=== PATIENT | male | born 1955 | race American Indian/Alaskan Native ===

== ENCOUNTER 2021-01-09 16:17 | Inpatient (IN) | payer MEDICARE, OTHER ==
[~2021-01-09] VITALS: Ht 167.6 cm; Wt 70.5 kg
[~2021-01-09 16:17] MED LIST: ASPIRIN EC81 MG PO; CYCLOBENZAPRINE5 MG PO; HYDROCODON-ACE1 EA11 PO; JANUMET 50-1,01 EACH PO; SIMVASTATIN10 MG PO
[2021-01-09] MEDS ORDERED: METHADONE HCL10 MG PO (16:29)
--- NOTE | 2021-01-09 19:42 | EKG ---
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
--- NOTE | 2021-01-09 21:30 | NUR ---
THIS RN TO ED, BEDSIDE REPORT FROM MATT WILLIS. MOVED FROM ED TO CCU. pt ROLLED FROM STRETCHER TO BED WITHOUT ASSISTANCE. THIS RN AT BEDSIDE TO DO ADMISSION.
--- NOTE | 2021-01-09 22:10 | NUR ---
pt IS ORIENTED TO SELF AND CITY. RESPIRATIONS TACHY, HIGH 20'S - MID 30'S. pt DENIES SOB AND PAIN. pt SOUNDS VERY COARSE IN THE UPPER AIRWAY/THROAT, CLEAR AND DIM IN THE LOWERS. UNABLE TO PROVIDE MUCH HISTORY. DENIED RECREATIONAL DRUGS "RECENTLY, BUT MY ROOMMATE DOES STUFF" pt REPORTED TAKING "INSULIN YEARS AGO" UNABLE TO LIST MEDICAIONS TAKEN EXCEPT METHADONE.
--- NOTE | 2021-01-09 22:42 | NUR ---
pt MOVING AROUND IN BED. REQUESTED TV BE TURNED OFF, DONE. NO FURTHER REQUESTS AT THIS TIME. BED ALARM ON.
--- NOTE | 2021-01-09 23:18 | NUR ---
pt CALLED OUT FOR NURSE. REQUESTED THAT BLOOD PRESSURE CUFF BE TAKEN OFF. REPORTED HE COULD NOT SLEEP. NO FURTHER REQUESTS CALL LIGHT WITHIN REACH.
--- NOTE | 2021-01-09 23:44 | NUR ---
pt UP TO VOID AND BACK TO BED 1PA. URINE SAMPLE SENT TO LAB. BED ALARM ON. CURTAIN OPEN TO NURSES STATION.
--- NOTE | 2021-01-10 01:25 | NUR ---
IV PUMP ALARMING. LEFT AC IV OCCLUDING WITH pt MOVEMENT. NEW IV STARTED. pt TOLERATED WELL. ASSESSMENT DONE. pt HAS A PRODUCTIVE COUGH. CALL LIGHT WITHIN REACH. BED ALARM ON. CURTAIN OPEN TO NURSES STATION.
--- NOTE | 2021-01-10 02:03 | NUR ---
pt MOVING IN BED. PROVIDED SODA PER REQUEST. pt ABLE TO COUGH A LITTLE MORE UP. BED ALARM ON. CURTAIN OPEN TO THE NURSES STATION.
--- NOTE | 2021-01-10 02:52 | NUR ---
PT SITTING UP ON THE SIDE OF HIS BED, ALARM SOUNDING. PT STATES HE NEEDS TO GO TO THE BR. PT SEEMS CONFUSED, PLAYING WITH THE RAIL. SBA TO BR AND BACK TO BED. NO OTHER NEEDS AT THIS TIME. RAILS UP, BED ALARM ON, CALL LIGHT IN REACH.
--- NOTE | 2021-01-10 04:21 | NUR ---
pt MOVING AROUND IN BED. UP TO VOID 1PA. BACK TO BED. ORIENTED TO LOCATION AND SELF. HAD TROUBLE WITH EQUIPMENT. PROVIDED FOOD AND WATER. NO FURTHER REQUESTS AT THIS TIME. CALL JUAN GARCIA.
--- NOTE | 2021-01-10 08:30 | NUR ---
PT IS AWAKE AND ALERT TO SELF AND SURROUNDINGS. PT HAS SOME DIFFICULTY FOLLOWING DIRECTIONS. PT DENIES PAIN. PT IV SITES ARE INTACT, NO REDNESS OR SWELLING NOTED, FLUIDS AND FLUSHES INFUSE EASILY. PT HAS BREAKFAST, HOWEVER STATES "I'M GOING TO TAKE A NAP FIRST, THEN EAT." PT REPOSITIONS SELF EASILY IN BED.
--- NOTE | 2021-01-10 09:01 | NUR ---
LE 0830: PATIENT IS LAYING DOWN. BREAKFAST PLACED AT BEDSIDE BUT NO DESIRE TO EAT AT THIS TIME. DIFFICULT TO UNDERSTAND SOME COMMANDS WHEN PEFORMING HEAD TO TOE ASSESSMENT. WOULD RANDOMLY MENTION HIS HORSES AND CATS BACK HOME. HAS TROUBLE KEEPING TELE LEADS IN PLACE WHEN HE TURNS. IVS ARE INTACT. CALL LIGHT WITHIN REACH. NO ADDITIONAL NEEDS AT THIS TIME.
--- NOTE | 2021-01-10 09:37 | NUR ---
PT STATES "I HAVE TO GO, I HAVE THINGS I HAVE TO DO". EDUCATED PT TO MEDICAL OPINION FROM THAT PT STILL REQUIRES CCU LEVEL CARE. PT STATES "YES, BUT THAT IS MY CHOICE". ENCOURAGED PT TO CONSIDER STAYING UNTIL HIS COURSE OF TREATMENT IS COMPLETED. PT STATES "LET ME CALL SOME PEOPLE AND SEE WHAT IS GOING ON". PT GIVEN HIS CELL PHONE FROM THE CLOSET.
--- NOTE | 2021-01-10 11:52 | NUR ---
pt up and ambulating in the robert with Grant from Physical Therapy. pt appears to ady activity well.
--- NOTE | 2021-01-10 12:11 | NUR ---
PATIENT RETURNED BACK TO BED FROM HIS PT SESSION. PATIENT STATED HE WAS TIRED FROM HIS WALK BUT FELT BETTER. COLD WATER WAS PLACED BY HIS BEDSIDE TABLE AND WAS ABLE TO TOLERATE SWALLOWING AND DRINKING WITH ASSISTANCE OF CAREGIVER. CAREGIVER IN THE ROOM. HAVE TO CONTINUE TO SPEAK OUTLOUD FOR HIM TO RESPOND TO QUESTIONS. CALL LIGHT WITHIN REACH. LUNCH ORDERED BY DONATION SPECIALIST.
--- NOTE | 2021-01-10 13:26 | NUR ---
PT UP TO BATHROOM TO VOID. PT IS STEADY ON FEET, ALTHOUGH CONFUSED. PT HAS A DIFFICULT TIME FOLLOWING SIMPLE DIRECTIONS.
--- NOTE | 2021-01-10 14:44 | NUR ---
MED REC COMPLETE
--- NOTE | 2021-01-10 15:52 | NUR ---
PT IS CONTRADICTORY AND CONTINUES TO TALK ABOUT LEAVING THE HOSPITAL. PT STATES "YOU CAN'T KEEP ME HERE, IT'S MY CHOICE."
--- NOTE | 2021-01-10 16:34 | NUR ---
PATIENT WAS ABLE TO TRANSFER TO RESTROOM TO VOID WITH STAND BY ASSIST OF FOOD CASHIER. PATIENT KEEPS ASKING IF HE COULD SMOKE A CIGARETTE. WAS TOLD NO AND OFFERED A NICOTINE PATCH INSTEAD BUT PATIENT DENIED IT. PATIENT IS NOW SITTING ON THE COUCH ON HIS PHONE. CALL LIGHT WITHIN REACH. NO ADDITIONAL NEEDS AT THIS TIME.
--- NOTE | 2021-01-10 18:14 | NUR ---
[facility]. HE HAS BEEN VERY AGGITATED AND NO LONGER WANTED TO BE ATTACHED TO THE LEADS, SO TELE LEADS HAVE BEEN REMOVED. HE HAS A TENDENCY TO WANT TO TAKE OUT HIS IV, BUT WAS VERBALLY ENCOURAGED TO ALLOW FOR THEM TO STAY INTACT TO PROVIDE MEDICATIONS. CAREGIVER IS SITTING ON THE COUCH NEXT TO HIM. HAS ORDERED FOOD FOR DINNER BUT HAS LITTLE TO NO APPETITE AT THIS TIME. CALL LIGHT WITHIN REACH. NO ADDITIONAL NEEDS AT THIS TIME.
--- NOTE | 2021-01-10 18:35 | NUR ---
Update from RN. Pt will remain in ccu as HC. Pt now has + blood cultures.
--- NOTE | 2021-01-10 18:45 | NUR ---
PATIENT WAS ABLE TO TRANSFER TO RESTROOM WITH NO ASSITANCE. WAS VERY EAGER TO GO, AND WANTED TO PULL ALL CABLES WITH HIM FROM THE WALL. CAREGIVER MENTIONED IT TO US AND WE WERE ABLE TO GRAB A BATTERY PACK. PATIENT FELL WHILE IN THE RESTROOM. HE WAS ABLE TO PULL THE EMERGENCY CALL LIGHT LOCATED ON THE WALL. NURSES ASSISTED WITH HELPING HIM UP. SLIGHT BRUISING ON UPPER LEFT SHOULDER. SMALL ABRASION ON TOP LEFT FOREHEAD. CT SCAN PERFROMED, WAITING FOR RESULTS. PATIENT IS LAYING IN BED. CAREGIVER IN THE ROOM. CALL LIGHT WITHIN REACH.
--- NOTE | 2021-01-10 18:47 | NUR ---
while assisting in ccu, Pt was up in bathroom. Pt had a fall, this RN called Dr Maldonado to notify of fall. Pt denies LOC, remembers event, denies pain other than head. Head CT ordered by Dr. Maldonado. Pts primary nurse in room.
--- NOTE | 2021-01-10 19:36 | NUR ---
FULL IRIS FILL OUT ON PT FALL.
--- NOTE | 2021-01-10 20:00 | NUR ---
PATIENT RESTING IN BED. REPORTS BEING UNCOMFORTABLE. ASSISTED THE PATIENT TO STAND AT THE BEDSIDE. BEDDING SMOOTHED. PATIENT RETURNED TO BED. WARM BLANKET PROVIDED. VS STABLE. IV SITE WNL X2. VANCO STARTED. INSTRUCTED PATIENT TO CALL IF IRRITATION OCCURS. CAREGIVER AT BEDSIDE. PATIENT MUMBLES AND DOESN'T ANSWER ORIENTATION QUESTIONS. APPEARS SLIGHTLY CONFUSED OR FORGETFUL. NOT AT BASELINE ACCORDING TO CAREGIVER, WHO STATES HE IS ORIENTED UP UNTIL THE LAST WEEK. PATIENT TOLERATING ROOM AIR, LUNG SOUNDS ARE DIMINISHED.
--- NOTE | 2021-01-10 21:36 | NUR ---
PATIENT INCREASINGLY AGGITATED AND TRYING TO PULL IV SITE OUT. CAREGIVER NOT BEING EFFECTIVE IN CALMING HIM. STAFF IN ROOM FREQUENTLY TO ASSIST. PATIENT UP TO THE BATHROOM. UNSTEADY ON HIS FEET, STAFF INSIST HE SIT TO PEE WHICH WAS FRUSTERATING TO PATIENT. PATIENT DOES REMEMBER FALLING. DISCUSSED WITH MD. WILL PUT IN ORDERS.
--- NOTE | 2021-01-10 21:53 | NUR ---
PATIENT'S "CAREGIVER" AT BEDSIDE, SHE REPORTS BEING PATIENT'S SIGNIFICANT OTHER FOR 10 YEARS UP UNTIL THE LAST 6 MONTHS. PATIENT AND THIS PERSON ARE ARGUING AND SHE STATES HE MIGHT BE MORE CALM WITHOUT HER THERE. PRN ATIVAN PROVIDED TO PATIENT. ASSISTED HIM BACK INTO BED. PATIENT CALMS QUICKLY. BED ALARM ACTIVE AND MONITOR IN PLACE.
--- NOTE | 2021-01-10 22:43 | NUR ---
DAYSHIFT CAREGIVER BACK IN ROOM. QUIETLY MAKING BED ON COUCH TO STAY THE NIGHT. PATIENT IS SLEEPING SOUNDLY. VS STABLE.
--- NOTE | 2021-01-11 00:30 | NUR ---
PATIENT'S EVENING ACCU CHECK DONE LATE SO HS CHECK AND SSI DONE AT THIS TIME. PATIENT IS SLEEPING SOUNDLY. HAS ATE AND DRANK VERY LITTLE. PATIENT'S CAREGIVER DID BRING HIM PIE BUT STAFF DISCUSSED HIS DIET RESTRICTIONS AND PATIENT CLAIMED NOT TO EAT ANY OF THIS. BLOOD GLUCOSE GREATER THAN 300, SSI GIVEN PER ORDER. PATIENT WAKES BREIFLY BUT QUICKLY SETTLES DOWN AGAIN. IV SITE WNL, FLUIDS PER ORDER. BED ALARM ACTIVE.
--- NOTE | 2021-01-11 03:31 | NUR ---
PATIENT PICKING AT CARDIAC LEADS AND GOWN. QUESTIONED PATIENT IF HE NEEDED TO VOID. PATIENT IS DROWSY BUT AGREES HE NEEDS TO VOID. ASSISTED PATIENT TO THE BSC. PATIENT NOT FOLLOWING INSTRUCTIONS WELL. 2PA. PATIENT VOIDED ON THE FLOOR AND IN HIS UNDERWEAR. PATIENT THEN SAT ON BSC AND VOIDED AGAIN. ATTENDS PLACED ON PATIENT. PATIENT ASSISTED BACK TO BED WITH 2PA. VS STABLE. IV FLUIDS PER ORDER, SITE WNL. PATIENT ENCOURAGED TO REST. CALL LIGHT IN REACH. BED ALARM ON.
--- NOTE | 2021-01-11 06:01 | NUR ---
PATIENT SLEEPING SOUNDLY. IV VANCO FINISHED, SITE WNL. IV FLUIDS CONTINUED. BED ALARM ACTIVE. CALL LIGHT IN REACH.
--- NOTE | 2021-01-11 06:53 | NUR ---
DISCUSSED PATIENT'S LAB FINDINGS WITH . TELEPHONE ORDERS RECEIVED FOR POTASSIUM AND MAG REPLACEMENT. BRIEF UPDATE PROVIDED.
--- NOTE | 2021-01-11 08:45 | NUR ---
20 G IV STARTED IN PT RT HAND, PT LUIS WELL, FLUSHES EASILY.
--- NOTE | 2021-01-11 09:10 | NUR ---
Attempted to see pt, he with RN and yelling out. Will return later.
--- NOTE | 2021-01-11 09:17 | NUR ---
LE 0830 FIRST ATTEMPT WAS UNSUCCESSFUL BY STUDENT NURSE. SECOND ATTEMPT PERFORMED BY NURSE CUBA AND WAS SUCCESSFUL.
--- NOTE | 2021-01-11 09:32 | NUR ---
PATIENT HAS BEEN SLEEPING AND IS HAVING DIFFICULTY STAYING AWAKE WHEN ASKED QUESTIONS. DOES BECOME ALERT WHEN PAIN STIMULUS IS PRESENT. PATIENT IS SLEEPING IN BED. O2 MONITOR PLACED ON LEFT TOE WITH COVERED SOCK. CALL LIGHT WITHIN REACH. O2 STATS ARE WNL FROM 90-99% WHILE ON ROOM AIR.
--- NOTE | 2021-01-11 11:14 | NUR ---
BED BATH GIVEN, ALL SKIN WASHED WITH WARM WASH CLOTHS, FULL JOANNE CARES DONE, GOWN AND ATTENDS CHANGED. PT NOT ABLE TO ASSIST WITH CARES, HOWEVER TOLLERATES THIS PROCESS WELL. PT NOT ABLE/WILLING TO OPEN EYES AND TALK TO CARE TEAM, BUT DOES STATES "CAN I GET SOME COFFEE". PT ASSISTED WITH VOIDING INTO THE URINAL IN BED HE IS NOT STEADY ON HIS FEET TO STAND AT BEDSIDE. PT HAS DIFFICULTY WITH VOIDING WHILE LAYING DOWN, NOT ABLE TO FOLLOW DIRECTIONS WELL. 225 ML CLEAR SHANTEL URINE. PT NOW APPEARS TO BE RESTING WELL, O2 SAT IS 100% ON RA AT THIS TIME.
--- NOTE | 2021-01-11 12:59 | NUR ---
PTS IVS ARE INTACT. UNDISTRESSED AND APPEARS RESTFUL. PT WAS ABLE TO VERBALIZE HIS URGE TO VOID AND WAS ASSISTED WITH THE URINAL AT THE BED BY THE STUDENT NURSE. VITAL SIGNS ARE STABLE. 100% O2 STATUS AT THIS TIME. PT IS SLEEPING, CALL LIGHT WITH IN REACH.
--- NOTE | 2021-01-11 13:12 | NUR ---
Attempted to see pt and he is sleeping.
--- NOTE | 2021-01-11 16:21 | NUR ---
PATIENT IS DROWSY, HAS BEEN TOSSING AND TURNING IN BED. OFFERED A PILLOW FOR SUPPORT BUT DENIED IT. HAS NO DESIRE TO VOID OR DRINK OR EAT AT THIS TIME. CALL LIGHT WITHIN REACH.
--- NOTE | 2021-01-11 18:20 | NUR ---
PATIENT SAT UP IN BED AND STATED HE HAD THE URGE TO URINATE. WITH THE ASSISTANCE OF THE STUDENT NURSE AND NURSE, A URINAL WAS PLACED AND HE WAS ABLE TO VOID WITHOUT ISSUES. REPLACED THE OLD SHEETS AND BLANKETS WITH NEW ONES. FLATUS RELEASED UPON REPOSITIONING TO BED. TOLERATED SOME FLUID INTAKE. PT IS NOW SLEEPING. CALL LIGHT WITHIN REACH.
--- NOTE | 2021-01-11 19:22 | NUR ---
[facility] - ROSA FROM THE LOCAL [facility] CALLED AND REPORTED THAT THE PT'S LAST DOSE OF METHADONE WAS 50 MG ON 01/07/21 IN THE MORNING. SHE ALSO REPORTS THAT THE PT HAS ONLY MISSED "ONE OR TWO DAYS HERE AND THERE" AND THAT HE IS "PRETTY REGULAR". SHE REQUESTS A NOTIFICATION OF PT DISCHARGE TO HOME. PLEASE CALL [phone].
--- NOTE | 2021-01-11 20:34 | NUR ---
PATIENT BECAME MORE RESETLESS BUT WAS FREQUENTLY DROWSY AND DENIED NEEDS. AFTER SEVERAL INTERATIONS PATIENT SET OFF BED ALARM BY TRYING TO CLIMB OFF THE VERY END OF THE BED. ASSISTED PATIENT TO STAND SAFELY AT BEDSIDE. PATIENT REPORTS NEED TO VOID. PATIENT IS UNSTEADY. 1PA TO THE BATHROOM. PATIENT SAT TO VOID [address] NEW ATT[address] IN PL[address]. 2PA BACK TO BED. PATIENT FOLLOWS SOME COMMANDS AND HOLDS SMALL CONVERSATION. VS STABLE. PO MEDS PROVIDED. CHEWED MEDS DESPITE NURSE'S INSTRUCTIONS. PATIENT TOOK SEVERAL SIPS OF WATER AND SAT AT EDGE OF BED. IV VANCO STARTED, IV SITE WNL. PATIENT EVENTUALLY LAID BACK DOWN AND WARM BLANKET WAS PROVIDED. CALL LIGHT IN REACH. LIGHTS DIMMED.
--- NOTE | 2021-01-11 23:57 | NUR ---
PATIENT SLEEPING SOUNDLY. FOLLOWS SOME COMMANDS AND LOOKS AT STAFF WHEN SPOKEN TO. PATIENT APPEARS ANNOYED WITH QUESTIONS MORE THAN CONFUSED. DIFFICULT TO ASSESS MENTAL STATUS.
--- NOTE | 2021-01-12 00:30 | NUR ---
PATIENT SLEEPING SOUNDLY. CAREGIVER IN ROOM. VS STABLE.
--- NOTE | 2021-01-12 01:30 | NUR ---
PATIENT EXIT THE BED WITHOUT CALLING, BED ALARM ALERTED STAFF. ASSISTED PATIENT TO USE THE URNAL AT THE BEDSIDE. PATIENT VOIDED LARGE AMOUNT. PATIENT FOLLOWS INSTRUCTIONS RELUCTANTLY. NEW ATTENDS IN PLACE. PATIENT REPORITIONED IN BED AND IV FLUIDS CONTINUED. SITE WNL. CALL LIGHT IN REACH. BED ALARM ACTIVE.
--- NOTE | 2021-01-12 04:07 | NUR ---
SCHEDULED VANCO STARTED, SITE WNL. PATIENT WAKES BREIFLY WHEN STAFF SPEAKS TO HIM BUT DOES NOT RESPOND MEANINGFULLY. ALLOWED PATIENT TO REST. CALL LIGHT IN REACH. VS STABLE.
--- NOTE | 2021-01-12 06:50 | NUR ---
PATIENT RESPONDS TO STAFF WITH SOUNDS AND ONE WORD ANSWERS. ROLLED OVER TO ALLOW HIS LEADS TO BE FIXED AND A BP TO BE DONE. PATIENT DENIED NEED TO VOID. ATTENDS DRY.
--- NOTE | 2021-01-12 07:55 | NUR ---
PT AWAKE AND SITTING UP AT THE SIDE OF THE BED WITH THE ALARM GOING OFF. PT CALM AND WAITING FOR ASSISTANCE. WHEN ASKED IF PT NEEDS TO USE TO THE TOILET HE STATES HE DOES. ONE PERSON ASSIST UP THE AMBULATE TO THE BATHROOM. PT ABLE TO VOID 500 ML CLEAR SHANTEL URINE, THEN AMBULATES BACK TO BED. PT BREAKFAST, AND CAREGIVER BREAKFAST ORDERED. PT IS AWAKE AND ALERT X4, HOWEVER SOMETIMES HE WILL NOT ANSWER DIRECT QUESTIONS. BOTH IV SITES ARE INTACT, NO REDNESS OR SWELLING NOTED, FLUIDS AND FLUSHES INFUSE EASILY. PT ABLE TO FOLLOW COMMANDS. VITALS ARE WNL. PT REMAINS ON ROOM AIR.
--- NOTE | 2021-01-12 10:06 | NUR ---
pt able to eat about 100% of breakfast, and is able to feed himself, however he is slow at eating. pt denies anyother needs at this time. Ngoc is also at the bedside.
--- NOTE | 2021-01-12 12:25 | NUR ---
PT LUNCH TRAY IS DELIVERED. PT IS AWAKE AND ALERT X4, AGREABLE TO SITTING UP AT THE SIDE OF THE BED FOR LUNCH. PT STATES "I'M WORRIED ABOUT MY DOG, AND MY HOUSE". PT'S FRIEND MARIO IS NOT AT THE BEDSIDE AT THIS TIME, HOWEVER SHE HAS STATED TO THIS RN THAT THE PT'S DOG IS BEING TAKEN CARE OF BY THE NEIGHBORS. PT REPORTS HE IS READY TO GO HOME. ATTEMPT TO REASURE PT. PT IS AGREABLE TO STAYING IN HOSPITAL FOR ANOTHER DAY BECAUSE THINKS HE SOULD.
--- NOTE | 2021-01-12 13:55 | NUR ---
PT UP OUT OF BED ALONE, BED ALARM GOING OFF. NURSING STAFF ABLE TO GET INTO ROOM PRIOR TO PT ATTEMPTING AMBULATION ON HIS OWN. PT ASSISTED TO AMBULATE INTO THE BATHROOM, HE IS ABLE TO STAND AND VOID INTO THE TOILET. HE THEN GOES BACK TO BED WITH STANDBY ASSIST. PT COOPERATIVE, HOWEVER IS FORGETFUL/UNWILLING TO USE CALL LIGHT FOR ASSISTANCE.
--- NOTE | 2021-01-12 14:50 | NUR ---
CONCHIS FROM PHYSICAL THERAPY IS IN PT ROOM FOR THERAPY. PT ABLE TO AMBULATE IN THE ROOM WITH WALKER EASILY. PT APPEARS TO LUIS PHYSICAL THERAPY WELL.
--- NOTE | 2021-01-12 15:25 | NUR ---
PT IS AWAKE AND LAYING IN BED PLAYING A GAME ON HIS PHONE. PT SITS UP AT THE SIDE OF THE BED AND STATES "I'M OK, I JUST NEED TO SIT UP FOR A WHILE". PT ASSISTED PER HIS REQUEST WITH CALLING FROM THE HOUSE PHONE HIS FRIEND MARIO. HE STATES HE IS CONCERNED ABOUT HIS DOG AND HIS HOUSE, AND WANTS TO TALK TO MARIO ABOUT IT.
--- NOTE | 2021-01-12 16:19 | NUR ---
PT APPEARS VERY ANXIOUS ABOUT TRYING TO LEAVE TO GO CHECK ON HIS DOG AND HIS HOUSE. HE IS NOT ABLE TO BE DISTRACTED FROM THIS. PT IS SLIGHTLY RESTLESS IN THE ROOM, AND IS UP TO THE CHAIR WITH MINIMAL STANDBY ASSIST. PT IS COOPERATIVE AND POLITE, HOWEVER STILL ANXIOUS. 2 MG IV ATIVAN GIVEN PRN FOR ANXIETY.
--- NOTE | 2021-01-12 17:05 | NUR ---
PT SLEEPING IN CHAIR WITH FEET UP AND RECLINER BACK.
--- NOTE | 2021-01-12 17:40 | NUR ---
PT ATTEMPING TO GET UP FROM CHAIR ON HIS OWN, PT NOT ABLE TO FOLLOW DIRECTION AND WAIT FOR HELP WITH CORD MANAGEMENT. PT IS WOBBLY ON HIS FEET AND IMPULSIVE. PT INDICATES THAT HE NEEDS TO USE THE BATHROOM, WHEN ASSISTED TO A COMMODE PT NOT ABLE TO FOLLOW DIRECTION TO SIT DOWN ON THE COMMODE. PT INCONTINENT IN HIS ATTEND, NOT ABLE TO VOID INTO URINAL WHEN PLACED. PT IS A HEAVY TWO PERSON ASSIST/LIFT BACK TO BED. CLEAN ATTEND PLACED. ALL VITALS ARE WNL, PT VERY DROWSY, POSSIBLY FROM IV ATIVAN GIVEN EARLIER.
--- NOTE | 2021-01-12 21:33 | NUR ---
PATIENT SLEEPING SOUNDLY. WOKE TO VOICE AND TOUCH. ACCU CHECK AND SSI PROVIDED PER ORDER. PATIENT DISLIKES CARE AND DOES NOT ANSWER ORIENTATION QUESTIONS. PATIENT ALSO DOES NOT ANSWER IF HE NEEDS TO VOID. HOWEVER ATTENDS ARE WET. ASSISTED PATIENT TO AMBULATE TO THE BATHROOM. PATIENT IS VERY UNSTEADY BUT STRONG. ATTENDS HEAVILY SOAKED AND PATIENT VOIDED LARGE AMOUNT IN THE TOILET WELL. SKIN CLEANED. NEW ATTENDS IN PLACE. PATIENT RETURNED TO BED. VS STABLE. IV FLUIDS PER ORDER, SITE WNL. PATIENT QUICKLY FALLS BACK TO SLEEP. LIGHTS DIMMED. CURTAIN OPEN FOR EASY VIEWING FROM NURSES STATION.
--- NOTE | 2021-01-13 03:12 | NUR ---
PATIENT UP TO THE BATHROOM. MORE STEADY THIS TIME. PATIENT IS FREQUENTLY DROWSY BUT HOLDS SMALL CONVERSATIONS AND FOLLOWS SIMPLE INSTRUCTIONS. PATIENT WASHED HIS HANDS AND RETURNED TO BED. IV FLUIDS PER ORDER, SITE WNL. PATIENT DENIED FURTHER NEEDS. CALL LIGHT IN REACH. BED ALARM ON.
--- NOTE | 2021-01-13 06:43 | NUR ---
PATIENT MORE ALERT THIS MORNING. REMOVED CARDIAC LEADS AND DEMANDED HIS IV BE REMOVED. COMPROMISED WITH PATIENT AND REMOVED CARDIAC LEADS FOR NOW. VS STABLE. SL IV FOR NOW. PATIENT AGREEABLE. CAREGIVER AT BEDSIDE. PATIENT IS DROWSY BUT ORIENTED TO PERSON AND PLACE.
--- NOTE | 2021-01-13 07:05 | NUR ---
PATIENT UP TO THE BATHROOM. ASSISTED PATIENT TO GET DRESSED. PATIENT IS MORE STEADY ON HIS FEET. PATIENT IS ORIENTED TO PERSON AND PLACE. CONTINUES TO BE WITHDRAWN BUT ALLOWS SOME CARES. PATIENT INTO RECLINER AND FRESH ICE WATER PROVIDED.
--- NOTE | 2021-01-13 08:12 | NUR ---
PT IS AWAKE AND ALERT LAYING IN BED. PT FRIEND/CAREGIVER IS AT THE BEDSIDE, MARIO. PT STATES "I'M BETTER, I'M READY TO GO HOME". PT DENIES NEED TO GO TO THE BATHROOM. DENIES PAIN, NAUSEA, AND SOB. IV SITES ARE INTACT, NO REDNESS OR SWELLING NOTED, FLUSH EASILY. PT LUNGS ARE CLEAR IN UPPER LOBES AND DIM IN THE BASES.
[2021-01-13] MEDS ORDERED: METHADONE HCL5 MG PO (08:21)
[2021-01-13] MEDS ORDERED: DOXYCYCLINE HY100 MG PO (08:23)
--- NOTE | 2021-01-13 09:36 | NUR ---
PT NOW LOUNGING IN BED AFTER EATING BREAKFAST, SLEEPING OFF AND ON. PT'S CAREGIVER IS AT THE BEDSIDE.
--- NOTE | 2021-01-13 09:50 | NUR ---
PT UP TO THE CHAIR FROM THE BED WITH ONE PERSON STAND BY ASSIST. PT DENIES NEED TO USE THE URINAL OR THE BATHROOM AT THIS TIME. PT GIVEN CALL LIGHT AND SIDE TABLE WITH PERSONAL BELONGINGS ON IT. PT REQUESTS AND IS GIVEN FRESH ICE WATER.
--- NOTE | 2021-01-13 10:20 | NUR ---
AT APPROXIMATLY 1005 PT HAD A GROUND LEVEL FALL TRYING TO GET UP FROM THE CHAIR WITHOUT ASSISTANCE. PT DENIES INJURY OR PAIN. 3 PERSON ASSIST TO GET PT TO STANDING POSITION FROM THE FLOOR. PT THEN ABLE TO STAND EASILY ON HIS OWN AND TALK WITH WHO WAS IN THE [place] WHEN THE PT FELL. PT STILL DENIES PAIN AND OR INJURY. PT DID NOT HIT HIS HEAD WHEN HE FELL. PT THEN ABLE TO AMBULATE TO THE BATHROOM WITH ONE PERSON ASSIST. PT ABLE TO VOID, THEN WALKS TO THE SINK TO WASH HIS HANDS WITH STANDBY ASSIST. PT THEN BACK TO THE CHAIR. CALL LIGHT GIVEN TO PT, REMINDED PT OF THE IMPORTANCE OF CALLING FOR HELP PRIOR TO AMBULATING. ALL VITALS ARE WNL. NO ORDERS FOR IMAGING CONFIRMED VIA PHONE WITH .
--- NOTE | 2021-01-13 11:35 | NUR ---
FULL REPORT GIVEN TO ALBA MARTINEZ VIA PHONE. ALL QUESTIONS ANSWERED. PLAN MADE TO MOVE PT TO MED/SURG ROOM 121 AT APPROXIMATLY 1215 TODAY.
--- NOTE | 2021-01-13 11:54 | NUR ---
PT IS UP IN THE [place] AMBULATING WITH PHYSICAL THERAPY. PT APPEARS TO BE LUIS ACTIVITY WELL. PT HAS ON HIS OWN SHOES AND CLOTHES. PT ABLE TO LUIS TWO LAPS IN THE [place].
--- NOTE | 2021-01-13 12:20 | NUR ---
PT TRANSFERED TO ROOM 121 ON MED/SURG VIA CHAIR. ALL PERSONAL BELONGINGS WENT WITH PT. PT LUIS MOVE WELL. ALL QUESTIONS ANSWERED AT BEDSIDE REPORT UPDATE WITH MICHELLE WILLIS.
--- NOTE | 2021-01-13 12:20 | NUR ---
PT TO MED-SURG UNIT FROM CCU VIA CHAIR ACCOMPANIED BY CUBA CCU RN. PT IS SLOW TO RESPOND TO QUESTIONS. PT OCCASIONALLY RESPONDS IN A QUIET MUMBLING TONE. LUNCH ARRIVED, PT SITTING UP IN CHAIR AND GIVEN TRAY. VSS. SATING 97% ON ROOM AIR. PT IS FULLY DRESSED AND DID ASK WHY HE'S NOT GOING HOME. PEELING AT HIS IV DRESSINGS SAYING HE NEEDS TO LEAVE. EXPLAINED TO PT WHY IT'S IMPORTANT HE USE CALL LIGHT APPROPRIATELY AND THAT PT NEEDS TO BE OBSERVED LONGER SINCE FALLING THIS MORNING. UNABLE ABLE TO ASSESS PT UNDERSTANDING HE DOES NOT ALWAYS RESPOND. CHAIR ALARM ON, CALL LIGHT IN REACH.
--- NOTE | 2021-01-13 14:30 | NUR ---
AFTERNOON ASSESSMENT COMPLETE. VSS. LUNG SOUNDS ARE CLEAR. DIMINISHED IN BASES. BOWEL TONES ACTIVE. SKIN IS GROSSLY INTACT. PT IS ALERT AND ORIENTED, YET SLOW TO RESPOND AND DOES NOT ALWAYS ANSWER QUESTIONS. POOR APPETITE AT LUNCH. PT UP TO BATHROOM TO VOID. NOW WALKING HALLS W/ SBA. PT TO REMAIN ON BED/CHAIR ALARMS HE IS STILL IMPULSIVE AND NOT QUITE STEADY ON FEET.
--- NOTE | 2021-01-13 15:30 | NUR ---
DR. SEAY ORDERED BLOOD CULTURES. [facility]. LAB IN TO DRAW CULTURES.
--- NOTE | 2021-01-13 17:05 | NUR ---
[facility]G 208. DINNER TRAY FOR PT AND GUEST HAVE ARRIVED. PT TRAY SET UP AT SIDE OF BED. 3 UNITS HUMALOG GIVEN W/ DINNER. FRIEND RINA REMAINS IN ROOM. CALL LIGHT IN REACH.
--- NOTE | 2021-01-13 20:14 | NUR ---
PT AWAKES EASILY, DID NOT ANSWER WHEN ASKED ABOUT DATE OR PLACE BUT WAS COOP WITH ASSESSMENT. UP TO BR, 1PA, VOIDED, BACKA TO BED, BED ALARM ON. TOLERATING FLUIDS, FRESH WATER GIVEN, SL L AND R AMRS INTACT, PATENT. CBG 235 RECEIVED 5 UNTIS INSULIN. ON ROOM AIR. LUNGS CLEAR, SLLIGHTLY DIM AT BASES, NO C/O PAIN. CALL LIGHT AT HANDS REACH, FEMALE FRIEND IN ROOM
--- NOTE | 2021-01-13 23:53 | NUR ---
RESTING, BED ALARM ON, NO DISTRESS
--- NOTE | 2021-01-14 01:31 | NUR ---
resting, no distress, room air, bed alarm on
--- NOTE | 2021-01-14 02:37 | NUR ---
Resting, eys closed, turns self in bed, laying on left side, no distress. bed alarm on. fall precautions in place. fluids at bedside
--- NOTE | 2021-01-14 03:06 | NUR ---
Up to br, voided, bed alarm did not go off. fall precautions in place, voided, back to bed, easily redirectable. in bed. alarm back on. c/o itchy throat, moist non productive cough present, lungs dim with faint crackles expiratory. tolerating liquids well. call light at bedside, and female friend in room. no other c/o, cooperative and easily redirectable.
--- NOTE | 2021-01-14 05:55 | NUR ---
pt awake, up to edge of bed, alrm going off, walked to br, voiding unmeasurable amounts of urine in toilet, back to bed with friends assist, improved gait. on room air. lungs with fine crackles. no c/o sob. 2 sl patent. tolerating liquids and diet well when frined is around. High risk fall precautions in place. flat affect but cooperative. Bed alarm on.
--- NOTE | 2021-01-14 06:56 | NUR ---
Pt back to bed from chair, 1pa, no c/o pain. On room air, no sob noted, slow gait
--- NOTE | 2021-01-14 08:15 | NUR ---
CBG 246, 5 UNITS OF HUMALOG GIVEN W/ BREAKFAST. PT STATES HIS BLOOD SUGARS NORMALLY RUN IN THE 230'S AT HOME AND THAT HE DOES NOT TAKE ANY MEDICATIONS FOR IT. CALCIUM 6.9, PT DENIES NUMBNESS & TINGLING IN FINGERS OR TOES, NEGATIVE FOR CHVOSTEK SIGN. LUNG SOUNDS ARE CLEAR BUL, DIMINISHED IN BASES. ACTIVE BOWEL TONES. VSS. APPEARS STEADY ON FEET, REMAINS ON BED AND CHAIR ALARM D/T FALL HX AND IMPULSIVENESS. FRIEND RINA IS ALSO ROOMATE AND GOOD HISTORIAN FOR PT HX. PT ALERT AND ORIENTED TO SELF AND PLACE, CONFUSED TO DATE AND UNSURE OF WHY HE IS HERE. UP IN CHAIR EATING BREAKFAST. CALL LIGHT IN REACH. CHAIR ALARM ON.
--- NOTE | 2021-01-14 08:45 | NUR ---
IN TO GIVE PT MORNING MEDICATIONS. IV ROCEPHIN INFUSING. 20 MG METHADONE GIVEN. PT FRIEND RINA IN ROOM. PT STILL HAS W[employer]LET WITH $2800 CHECK IN POCKET. OFFERED TO PUT IN SAFE, PT REFUSED STATES HE NEEDS HIS DEBIT CARD TO TALK TO [employer] ON THE PHONE TODAY. SITTING UP IN CHAIR. FAIR APPETITE AT BREAKFAST ATE 50%. CALL LIGHT IN REACH.
--- NOTE | 2021-01-14 11:01 | NUR ---
DISCUSSED LOW CALCIUM W/ DR SEAY WHO STATES IT IS LIKELY R/T LOW ALBUMIN LEVELS. STATES CALCIUM LEVELS COULD ALSO BE IMPROVED BY TUMS.
--- NOTE | 2021-01-14 11:09 | NUR ---
CHARGE NURSE IN ROOM AT THIS TIME AND IS DOING A MANUAL B\P DUE TO B\P BEING LOW ON MACHINE IN ROOM. PATIENT IS SITTING UP IN CHAIR, VISITOR IN ROOM. CALL LIGHT IN REACH. NO FURTHER NEEDS AT THIS TIME.
--- NOTE | 2021-01-14 11:50 | NUR ---
BANJO REPAIRERALBA HENRY IN ROOM. MANUAL BP STILL LOW AT 88/52. DR SEAY NOTIFIED BY BANJO REPAIRER. NEW ORDERS FOR LR 1L BOLUS @ 200 MLS/HR. LANTUS 10 UNITS GIVEN BY ELAINE.
--- NOTE | 2021-01-14 12:05 | NUR ---
CBG 281, 7 UNITS OF HUMALOG GIVEN. DIETARY IN ROOM TO PROVIDE TRAY. PT SITTING UP IN CHAIR. FRIEND RINA ON COUCH. CALL LIGHT IN REACH. NO OTHER NEEDS AT THIS TIME.
--- NOTE | 2021-01-14 13:06 | NUR ---
PATIENT UP IN BATHROOM. WILL CHECK BACK.
--- NOTE | 2021-01-14 13:30 | NUR ---
DR SEAY IN TO SEE PT, REQUESTED PT GET UP AND AMBULATE LOMELI. PT UP TO AMBULATED SBA W/ THIS RN. AMBULATED 2 LARGE LAPS AROUND NURSE STATIONS. TOLERATED MODERATELY WELL, PT DENIES FEELING DIZZY, LIGHT-HEADED OR SOB. BACK TO ROOM SITTING UP IN CHAIR. BP RECHECKED 106/58. REPORTED TO DR SEAY WHO THEN PUT IN ORDER FOR DISCHARGE. WILL NOTIFY PT AND FRIEND RINA OF IMMINENT DC. PT HAS BEEN FREQUENTLY ASKING WHEN HE WILL BE ABLE TO GO HOME.
[2021-01-14] MEDS ORDERED: JANUMET 50-1,01 EACH PO (13:47)
--- NOTE | 2021-01-14 14:45 | NUR ---
SPOKE WITH PATIENT IN ROOM. HE IS DRESSED AND UP IN CHAIR. STATES HE IS GOING HOME. PATIENT STATES HE LIVES ALONE AND PREMA IS TAKING HIM HOME. STATES SHE IS A FRIEND. PATIENT STATES HE DOES NOT USE DME TO AMBULATE. STATES HE USES [facility] BUT HE [place] DR [place] BECAUSE THEY NEVER KEEP THE SAME DOCTOR. ASKED IF HE HAS ANY PREFERENCE OF WHO TO USE, HE STATES HE WANTS TO TALK TO HIS "GIRLS". GAVE HIM DISCHARGE PLANNING CONTACT INFOR TO CALL OUR OFFICE AND WE CAN HELP HIM. PATIENT IS NOT SURE OF HIS PHONE NUMBER. HAS HIS CELL WITH HIM. I CALLED THE NUMBER ON THE FACESHEET AND IT STATED IT WAS NO LONGER IN SERVICE. PATIENT SEEMS CONFUSED ABOUT THIS. THEN STATES "I GOT A NEW NUMBER" BUT HE WAS UNABLE TO FIND IT IN THE PHONE. AGAIN I SAID HE CAN CALL US WHEN HE DECIDES WHO HE WANTS TO USE AND HAS HIS PHONE NUMBER SO WE CAN CALL HIM BACK. HE IS AGREEABLE TO THIS. ASKED IF HE UNDERSTANDS WHY HE WAS HERE, STATED HE HAD PNEUMONIA BUT FEELS BETTER. STATES HE HAS STAIRS AT HOUSE BUT DOESN'T HAVE PROBLEMS WITH THEM. DENIES PROBLEMS PAYING FOR MEDS/FOOD/UTILITIES. STATES HE DRIVES. PATIENT ANSWERS SLOWLY MOST OF THE TIME. ASKED STAFF IF THIS WAS BASELINE FOR HIM. THEY STATED HIS ROOM MATE IS HERE IN BUILDING AND SHE IS COMING BACK TO ROOM FOR DISCHARGE INSTRUCTIONS. SHE IS PLANNING ON DRIVING HIM AND MAKING SURE HE TAKES MEDS, GETS TO F/U APPTS. ROOMMATE CAME TO THE ROOM. SHE STATES SHE LIVES WITH HIM AND HE IS NOT NORMALLY CONFUSED LIKE HE WAS ON ADMIT. BUT SHE STATES HE IS MUCH BETTER AND PROBABLY TOMORROW HE WILL BE BASELINE. SHE STATES SHE WILL BE WITH HIM AND HELP HIM WITH HIS NEEDS. THE CONFIRMED THE INFORMATION HE GAVE ME. STAFF NURSE IN TO GIVE DISCHARGE INFORMATION TO THEM BOTH.
--- NOTE | 2021-01-14 15:00 | NUR ---
DC INSTRUCTIONS REVIEWED W/ PT AND ROOMATE RINA PRESENT. BOTH VERBALIZED UNDERSTANDING. IV TO RT HAND AND LFA REMOVED, CATHS INTACT. VSS. PT WHEELED TO CAR W/ AIDE. RINA DRIVING PT HOME.
--- NOTE | 2021-01-14 17:15 | EKG ---
[facility] [address] [facility] [place] [address] Signed Normal sinus rhythm Left axis deviation Low voltage QRS Inferior infarct (cited on or before 09-JAN-2021) Cannot rule out Anterior infarct (cited on or before 09-JAN-2021) Abnormal ECG When compared with ECG of 09-JAN-2021 16:35, Questionable change in initial forces of Lateral leads Nonspecific T wave abnormality now evident in Inferior leads Confirmed by PHOEBE SEAY DO ([id number]) on 01/14/2021 5:15:36 PM Electronically Signed By: PHOEBE SEAY DO 01/14/21 1715 PATIENT NAME: MARTIN DELACRUZ Electrocardiogram DATE OF : 57 PHYSICIAN: PHOEBE SEAY DO REPORT #: [id number] REPORT IS CONFIDENTIAL AND NOT TO BE RELEASED WITHOUT AUTHORIZATION
== END 2021-01-14 15:10 | disposition home or self-care (01) | DRG 871 ==
LOC: ED 16:17 → CCU 21:19 → MS 01-13 12:25
PROVIDERS: ADMIT Internal Medicine; ATTEND Internal Medicine
DX: A40.3 Sepsis due to Streptococcus pneumoniae (principal); J13 Pneumonia due to Streptococcus pneumoniae; R65.20 Severe sepsis without septic shock; G93.41 Metabolic encephalopathy; E87.1 Hypo-osmolality and hyponatremia; Z20.822 Contact with and (suspected) exposure to COVID-19; E11.65 Type 2 diabetes mellitus with hyperglycemia; E83.42 Hypomagnesemia; G89.29 Other chronic pain; M54.9 Dorsalgia, unspecified; Z79.899 Other long term (current) drug therapy; Z79.84 Long term (current) use of oral hypoglycemic drugs; Z79.82 Long term (current) use of aspirin; Z79.891 Long term (current) use of opiate analgesic
CPT/HCPCS: 36415; 36600; 70450; 71045; 71260; 80048; 80053; 81001; 82803; 83036; 83605; 83690; 83735; 84484; 85025; 85651; 86140; 87040; 87077; 87186; 93005; 93010; 93306; 97110; 97116; 97162; 97165; 97530; C9803; J0456; J0696; J1650; J1815; J2060; J2543; J3370; J3475; J3480; J7030; J7050; J7060; J7120; J7121; Q9967; U0003

== ENCOUNTER 2021-01-25 15:00 | Emergency (ER) | payer MEDICARE, OTHER ==
[~2021-01-25] VITALS: Ht 167.6 cm; Wt 70.3 kg
[~2021-01-25 15:00] MED LIST changes: +DOXYCYCLINE HY100 MG PO; +METHADONE HCL10 MG PO; +METHADONE HCL5 MG PO
--- OUTSIDE RECORDS SUMMARY | 2021-01-25 15:02 | XMS ---
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 Sammi has no Care Guidelines for this patient. [facility] MO.) [facility] NOTE: Visits indicate total known visits. ED/C VISIT TRACKING (12 MO.) [facility] COMPLAINT: - COUGH,CHEST PAIN,FATIGUE 01/09/2021 16:18 [facility] [place] TYPE: Emergency COMPLAINT: - ALTERED LOC INPATIENT VISIT TRACKING (12 MO.) 01/09/2021 21:19 [facility] [place] TYPE: Medical Surgical COMPLAINT: - PNEUMONIA DIAGNOSES: - Metabolic encephalopathy - intermediate (current) use of opiate analgesic - Sepsis due to Streptococcus pneumoniae - Type 2 diabetes mellitus with hyperglycemia - intermediate (current) use of opiate analgesic - Other chronic pain - Sepsis, unspecified organism - Hypo-osmolality and hyponatremia - Other chronic pain - Sepsis due to Streptococcus pneumoniae - intermediate (current) use of aspirin - 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 - Hypo-osmolality and hyponatremia - Severe sepsis without septic shock - intermediate (current) use of oral hypoglycemic drugs - Hypomagnesemia - Severe sepsis without septic shock - Dorsalgia, unspecified - Metabolic encephalopathy - Dorsalgia, unspecified - Other predatory animal exterminator (current) drug therapy - Type 2 diabetes mellitus with hyperglycemia - Other predatory animal exterminator (current) drug therapy - Hypomagnesemia - Pneumonia due to Streptococcus pneumoniae - Pneumonia due to Streptococcus pneumoniae - ferry 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
--- NOTE | 2021-01-26 15:16 | EKG ---
[facility] [address] [facility] [place] [address] Signed Sinus rhythm with 1st degree AV block Left axis deviation Right bundle branch block T wave abnormality, consider lateral ischemia Abnormal ECG When compared with ECG of 14-JAN-2021 06:11, [place] interval has increased Right bundle branch block is now present Minimal criteria for Anterior infarct are no longer present Criteria for Inferior infarct are no longer present Confirmed by PHOEBE SEAY DO ([id number]) on 01/26/2021 3:15:49 PM Electronically Signed By: PHOEBE SEAY DO 01/26/21 1516 PATIENT NAME: MARTIN DELACRUZ Electrocardiogram DATE OF : 57 PHYSICIAN: PHOEBE SEAY DO REPORT #: [id number] REPORT IS CONFIDENTIAL AND NOT TO BE RELEASED WITHOUT AUTHORIZATION
--- NOTE | 2021-01-26 15:16 | EKG ---
[facility] [address] [facility] [place] [address] Signed Sinus rhythm with occasional premature ventricular complexes Left axis deviation Right bundle branch block Inferior infarct , age undetermined T wave abnormality, consider lateral ischemia Abnormal ECG When compared with ECG of 25-JAN-2021 15:11, (Unconfirmed) premature ventricular complexes are now present Confirmed by PHOEBE SEAY DO ([id number]) on 01/26/2021 3:16:20 PM Electronically Signed By: PHOEBE SEAY DO 01/26/21 1516 PATIENT NAME: MARTIN DELACRUZ Electrocardiogram DATE OF : 57 PHYSICIAN: PHOEBE SEAY DO REPORT #: [id number] REPORT IS CONFIDENTIAL AND NOT TO BE RELEASED WITHOUT AUTHORIZATION
== END 2021-01-25 19:42 | disposition short-term general hospital (02) ==
LOC: ED 15:00
DX: J96.90 Respiratory failure, unspecified, unspecified whether with hypoxia or hypercapnia (principal); R57.0 Cardiogenic shock; Z20.822 Contact with and (suspected) exposure to COVID-19; E11.9 Type 2 diabetes mellitus without complications; F17.200 Nicotine dependence, unspecified, uncomplicated; Z79.899 Other long term (current) drug therapy
CPT/HCPCS: 71045; 80053; 83605; 83880; 84484; 85025; 93005; 93010; 94660; 96365; 96375; 99285-25; C9803; J2543; J3010; J7030; U0003